=== PATIENT | female | born 1945 | race Caucasian/White ===

== ENCOUNTER 2017-03-15 10:54 | Emergency (ER) | payer MEDICARE, OTHER ==
[~2017-03-15] VITALS: Ht 170.2 cm; Wt 94.3 kg
[~2017-03-15 10:54] MED LIST: CARAFATE1 GM PO; ESTRADIOL0.5 MG PO; LISINOPRIL2.5 MG PO; MACROBID 100 M100 MG PO; METHOTREXATE2.5 MG PO; TRAMADOL HCL50 MG PO
[2017-03-15] MEDS ORDERED: XANAX0.5 MG PO (12:03)
--- NOTE | 2017-03-15 14:54 | EKG ---
[facility] [address] [facility] [place] [address] Signed Normal sinus rhythm Normal ECG No previous ECGs available Confirmed by CHINEDU YAÑEZ MD ([id number] on 03/15/2017 2:54:23 PM Electronically Signed By: CHINEDU YAÑEZ MD 03/15/17 1454 PATIENT NAME: GRISELDA DAVIS Electrocardiogram DATE OF : 49 PHYSICIAN: CHINEDU YAÑEZ MD REPORT #: [id number] REPORT IS CONFIDENTIAL AND NOT TO BE RELEASED WITHOUT AUTHORIZATION
== END 2017-03-15 12:14 | disposition home or self-care (01) ==
LOC: ED 10:54
DX: F41.1 Generalized anxiety disorder (principal); F43.0 Acute stress reaction; R07.2 Precordial pain; I10 Essential (primary) hypertension; Z90.710 Acquired absence of both cervix and uterus; Z90.49 Acquired absence of other specified parts of digestive tract; Z88.5 Allergy status to narcotic agent; Z88.0 Allergy status to penicillin; Z88.8 Allergy status to other drugs, medicaments and biological substances; Z79.899 Other long term (current) drug therapy
CPT/HCPCS: 71020; 80053; 84484; 85025; 93005; 93010; 96374; 99284; J2060